=== PATIENT | female | born 1945 | race African-American/Black ===

== ENCOUNTER 2019-05-30 14:47 | Observation (INO) | payer BC ==
[~2019-05-30 14:47] MED LIST: ISOVUE-370 76%-LOCM 1 ML ONE
[2019-05-30 15:25] LABS: #Basophils 0.1 thou/uL (0.0-0.2); #Eosinphils 0.1 thou/uL (0.0-0.7); #Lymphocytes 3.4 thou/uL (1.20-3.40); #Monocytes 1.2 thou/uL (0.11-0.59); %Basophils 1.3 % (0.0-1.0); %Eosinophils 0.6 % (0.0-10.0); %Lymphocytes 28.9 % (21.0-51.0); %Monocytes 10.4 % (0.0-10.0); %Neutrophils 58.9 % (42.0-75.0); Hemoglobin 13.5 g/dL (12.0-16.0); Mean Corpuscular HGB CONC 33.5 g/dL (32.0-36.0); Mean Corpuscular Volume 95.5 fL (78.0-98.0); Mean Platelet Volume 6.3 fL (7.4-10.4); Platelet Count 311 thou/uL (130-400); RBC Distribution Width 12.4 % (11.5-14.5); Red Blood Cell (RBC) Count 4.23 mill/uL (4.20-5.40); White Blood Cell (WBC) Count 11.8 thou/uL (4.8-10.8)
--- NOTE | 2019-05-30 15:31 | RAD ---
EXAM: Single view of the chest HISTORY: Syncope COMPARISON: 06/01/2015 FINDINGS: Single view of the chest shows a normal sized cardiomediastinal silhouette. There is a ques tionable 2.4 cm nodular opacity projecting over the right upper lobe. No pleural effusion is seen. The bones are unremarkable. IMPRESSION: Questionable right upper lobe mass. A CT the chest with contrast is recommended for louie r evaluation.
[2019-05-30 15:46] LABS: ALT (SGPT) 12 U/L (8-55); AST (SGOT) 18 U/L (5-34); Alkaline Phosphatase 86 U/L (40-150); Anion Gap 11 mmol/L (10-20); BUN (Urea Nitrogen) 11 mg/dL (9.8-20.1); Bilirubin, Total 0.4 mg/dL (0.2-1.2); CK (CPK) 110 U/L (29-168); Calc. Creatinine Clearance 0 mL/min (70-130); Calcium 9.8 mg/dL (7.8-10.44); Carbon Dioxide 26 mmol/L (23-31); Chloride 104 mmol/L (98-107); Estimated GFR-MDRD 69; Glucose 86 mg/dL (83-110); Potassium 3.8 mmol/L (3.5-5.1); Sodium 137 mmol/L (136-145)
[2019-05-30] MEDS ORDERED: Aspirin Chewable 81 MG TAB ONE (17:02)
[2019-05-30] MEDS ORDERED: Acetaminophen 325 MG TAB PO PRN (17:46)
[2019-05-30] MEDS ORDERED: Nitroglycerin 0.4 MG TAB (25 Tab Bottle) PO PRN (17:46)
[2019-05-30] MEDS ORDERED: Bisacodyl 5 MG TAB PO PRN (17:46)
[2019-05-30] MEDS ORDERED: Acetaminophen 650 MG Suppository PR PRN (17:46)
[2019-05-30] MEDS ORDERED: Dextrose 50% Abboject 50 ML SYRINGE SLOW IVP PRN (17:48)
[2019-05-30] MEDS ORDERED: Dextrose 5% in Water 1,000 ML IV PRN (17:48)
[2019-05-30] MEDS ORDERED: HumaLOG 300 UNITS/3 ML VIAL SC PRN (17:48)
[2019-05-30] MEDS ORDERED: Nicotine 21 MG PATCH TD SCH (18:00)
--- NOTE | 2019-05-30 18:44 | HP ---
PRIMARY CARE PROVIDER: Dr. Rigo Hdz. CHIEF COMPLAINT: Syncope. HISTORY OF PRESENT ILLNESS: Ms. Dominguez is a pleasant 73-year-old lady, who was seen at [facility] on May 30, 2019. Around 2 p.m. today, she was playing bingo. She reports feeling cramping sensation in her right upper arm. She then passed out and fell on the ground. She was told by bystanders that she hit her head on the ground. It is unclear how long she had lost consciousness. She regained consciousness to find people asking her questions. She then vomited. EMS arrived after that and brought her to the emergency room. While in the ambulance, she had left upper extremity pain. She is unable to characterize the discomfort further, but reports that "the pain was just there." The pain resolved before she arrived at the emergency room. She denies any previous syncopal episodes. She denies any chest pain. She denies any diarrhea. She denies any abdominal pain. REVIEW OF SYSTEMS: All systems were reviewed and found to be negative except for the pertinent positives mentioned above. PAST MEDICAL HISTORY: Coronary artery disease, her pillar worker is Dr. Dominguez; hypertension; and cerebrovascular accident with residual left-sided weakness. SURGICAL HISTORY: Colectomy and polyp removal. SOCIAL HISTORY: The patient smokes one to one and half packs of cigarettes a day. She reports occasional marijuana use. She denies alcohol use. FAMILY HISTORY: Significant for multiple family members with coronary artery disease. CODE STATUS: I discussed her code status. She is full code. ALLERGIES: NO KNOWN DRUG ALLERGIES. CURRENT MEDICATIONS: 1. Aspirin 325 mg daily. 2. Lipitor 40 mg daily. 3. Plavix 75 mg daily. 4. Losartan 25 mg daily. PHYSICAL EXAMINATION: GENERAL: Ms. Dominguez is awake and alert, not in acute distress. VITAL SIGNS: Blood pressure is 137/64, pulse 82, respiratory rate 19, and oxygen saturation 98% on room air. She is afebrile. EYES: No scleral icterus, no conjunctival pallor. ENT: Moist mucosal membranes. No oropharyngeal erythema or exudates. NECK: Supple, nontender, trachea is midline. RESPIRATORY: Accessory muscles of breathing are not active. Chest wall movements are symmetric bilaterally. Lungs are clear to auscultation without wheeze, rhonchi, or crepitations. CARDIOVASCULAR: S1 and S2 are heard, regular. Peripheral pulses palpable. No carotid bruit. No pericardial rub. ABDOMEN: Soft, nontender, bowel sounds are heard. NEUROLOGIC: Cranial nerves 2 through 12 are intact. Power is 5/5 in the right upper and lower extremities, 4+/5 in the left upper and lower extremities. Deep tendon reflexes 2+, plantars downgoing bilaterally. MUSCULOSKELETAL: Power in the 4 extremities as described above. SKIN: No rashes or subcutaneous nodules. LYMPHATIC: No cervical lymphadenopathy. PSYCHIATRIC: Normal mood, normal affect. The patient is oriented to person, place, and time. LABORATORY DATA: Ms. Dominguez is labs and investigations were reviewed. I reviewed her electrocardiogram, which shows normal sinus rhythm, no ST changes to suggest an acute coronary syndrome. I also reviewed her chest x-ray, which appears to show a right upper lobe mass. She has leukocytosis with 11,800 white cells, of which 58.9% are neutrophils. Hemoglobin and platelet count are normal. Comprehensive metabolic profile is normal. Troponin-I is normal. ASSESSMENT AND PLAN: Ms. Dominguez is a pleasant 73-year-old lady, who was seen at [facility] on May 30, 2019. Her problem list includes: 1. Syncope: Ms. Dominguez is presenting with syncope, etiology is unclear. She has known history of coronary artery disease. We will check 2D echocardiogram to evaluate her ejection fraction. We will monitor her on telemetry to rule out arrhythmias. We will also consult Cardiology Service for opinion and help with management. 2. Lung mass: The patient appears to have a new lung mass on chest x-ray. We will evaluate with a CT scan of the chest. Further management depending on outcome of the test. 3. Tobacco abuse: The patient has been counseled regarding tobacco cessation. We will start her on nicotine replacement therapy. 4. Dyslipidemia: Continue Lipitor. 5. Coronary artery disease: The patient denies any chest pain at this time. Continue aspirin and Plavix. 6. Hypertension: Continue losartan, monitor vital signs and titrate antihypertensives as needed. Many thanks for allowing me to participate in your patient's care. Please feel free to contact me with any questions or concerns. LEVEL OF RISK: High. LEVEL OF COMPLEXITY: High. Job ID: [id number]
[2019-05-30 18:52] LABS: Troponin I Less than 0.010 ng/mL (< 0.028)
--- NOTE | 2019-05-30 19:26 | CT ---
NONCONTRAST HEAD CT: History: Syncope. Comparison: None. FINDINGS: No parenchymal hemorrhage. No extraaxial hematoma. No midline shift. Basilar cisterns are patent. Brain volume is age appropriate. Cortical dennis-white matter differentiation is preserved. No hydrocephalus. White matter hypodensities due to chronic small vessel ischemic change. Intact calvarium. Adequate aeration of the sinuses and mastoid air cells. IMPRESSION: No acute intracranial process. POS: H
--- NOTE | 2019-05-30 19:31 | CT ---
CHEST CT WITH CONTRAST: History: Evaluate upper lobe mass. FINDINGS: No mediastinal mass, lymphadenopathy or hematoma. Heart size is within normal limits. No significant pericardial fluid. Minimal coronary artery calcifications. The thoracic aorta and upper abdominal aor ta have a normal caliber. No periaortic fat stranding. Upper abdomen: Multiple hypodensities in the hepatic parenchyma, too small to characterize. Hypodensi ties are similar to a CT angiogram of the chest performed 06-01-15. Filling hemangioma in the right he patic lobe is redemonstrated. Heterogeneous right thyroid nodules, incompletely evaluated. Tracheal and central bronchi are patent. Dependent atelectatic changes. No pleural effusion. No pneum othorax. Right lung: Irregular marginated predominately central necrotic mass in the right upper lobe measurin g 2.1 cm mediolateral x 1.9 cm anterior posterior x 2.2 craniocaudal. Adjacent posterior atelectasis in the lung apex is suspected. Mild emphysematous changes are noted in the right lung apex. There is a second ill-defined nodule in the posterior aspect of the right upper lobe with irregular margin arelis suring 0.9 cm mediolateral x 0.9 cm anterior posterior x 0.9 cm craniocaudal. There is a ground glass nodule in the right lower lobe measuring 0.3 x 0.4 cm. Left lung: No suspicious masses, consolidations, or nodules. Osseous structures: No lytic or blastic lesions in the osseous structures. IMPRESSION: 1. Multiple masses in the right lung as described above. The largest mass is worrisome for malignancy until proven otherwise. PET imaging is recommended. Due to the central location of this mass, CT yonatan ded biopsy may be difficult. POS: [facility]
[2019-05-30] MEDS ORDERED: Atorvastatin Calcium 40 MG TAB PO SCH (21:00)
[2019-05-30 21:54] LABS: Troponin I Less than 0.010 ng/mL (< 0.028)
[2019-05-31 05:36] LABS: #Basophils 0.1 thou/uL (0.0-0.2); #Eosinphils 0.2 thou/uL (0.0-0.7); #Lymphocytes 2.9 thou/uL (1.20-3.40); #Neutrophils 5.2 thou/uL (1.40-6.50); %Basophils 0.7 % (0.0-1.0); %Eosinophils 2.5 % (0.0-10.0); %Lymphocytes 30.8 % (21.0-51.0); %Monocytes 10.6 % (0.0-10.0); %Neutrophils 55.5 % (42.0-75.0); Hemoglobin 13.1 g/dL (12.0-16.0); Mean Corpuscular HGB CONC 33.2 g/dL (32.0-36.0); Mean Corpuscular Hemoglobin 31.6 pg (27.0-31.0); Mean Corpuscular Volume 95.5 fL (78.0-98.0); Mean Platelet Volume 6.4 fL (7.4-10.4); Platelet Count 297 thou/uL (130-400); RBC Distribution Width 12.4 % (11.5-14.5); Red Blood Cell (RBC) Count 4.14 mill/uL (4.20-5.40); White Blood Cell (WBC) Count 9.4 thou/uL (4.8-10.8)
[2019-05-31 06:22] LABS: Anion Gap 12 mmol/L (10-20); BUN (Urea Nitrogen) 13 mg/dL (9.8-20.1); Calc. Creatinine Clearance 62 mL/min (70-130); Calcium 9.3 mg/dL (7.8-10.44); Carbon Dioxide 22 mmol/L (23-31); Chloride 108 mmol/L (98-107); Estimated GFR-MDRD Greater than 90; Glucose 120 mg/dL (83-110); Potassium 4.2 mmol/L (3.5-5.1); Sodium 138 mmol/L (136-145)
[2019-05-31] MEDS ORDERED: Clopidogrel Bisulfate 75 MG TAB PO SCH (09:00)
[2019-05-31] MEDS ORDERED: Losartan 25 MG TAB PO SCH (09:00)
[2019-05-31] MEDS ORDERED: Atenolol 25 MG TAB PO SCH (09:00)
[2019-05-31] MEDS ORDERED: Amlodipine 5 MG TAB PO SCH (09:00)
[2019-05-31] MEDS ORDERED: Aspirin 81 mg Enteric Coated Tablet PO SCH (09:00)
[2019-05-31 11:47] VITALS: BP 119/56; TEMP 98.4
--- NOTE | 2019-05-31 13:33 | PDOC.HOSPP ---
- Subjective Encounter Date: 05/31/19 Encounter Time: 07:00 Subjective: Pt seen for followup re: syncope. No recurrence. No complaints. - Objective Vital Signs & Weight: Vital Signs (12 hours) Temp Pulse Resp BP BP BP Pulse Ox 05/31/19 11:41 98.4 F 75 16 119/56 L 96 05/31/19 09:14 73 05/31/19 07:47 98.7 F 73 16 143/61 H 97 05/31/19 04:05 98.4 F 78 18 121/59 L 98 Weight Weight 131 lb 4.8 oz Result Diagrams: 05/31/19 05:25 05/31/19 05:25 Additional Labs: Labs and MARs reviewed by me EKG Reviewed by me: Yes (Tele: NSR) Hospitalist ROS - Review of Systems Cardiovascular: denies: chest pain, palpitations, orthopnea, paroxysmal noc. dyspnea, edema, light headedness Gastrointestinal: denies: nausea, vomiting, abdominal pain, diarrhea, constipation, melena, hematochezia - Medication Medications: Active Medications Generic Name Dose Route Start Last Admin Trade Name Freq PRN Reason Stop Dose Admin Amlodipine Besylate 5 mg 05/31/19 09:00 05/31/19 09:14 Norvasc PO 5 mg DAILY ELA Administration Aspirin 81 mg 05/31/19 09:00 05/31/19 08:15 Ecotrin PO 81 mg DAILY ELA Administration Atenolol 25 mg 05/31/19 09:00 05/31/19 09:14 Tenormin PO 25 mg DAILY ELA Administration Atorvastatin Calcium 40 mg 05/30/19 21:00 05/30/19 21:13 Lipitor PO 40 mg HS ELA Administration Clopidogrel Bisulfate 75 mg 05/31/19 09:00 05/31/19 08:15 Plavix PO 75 mg DAILY ELA Administration Losartan Potassium 25 mg 05/31/19 09:00 05/31/19 08:14 Cozaar PO 25 mg DAILY ELA Administration Nicotine 21 mg 05/30/19 18:00 05/30/19 18:47 Nicoderm Patch TD Not Given Q24HR ELA - Exam General Appearance: NAD Eye: anicteric sclera ENT: moist mucosa Neck: supple, no JVD Heart: RRR, no rubs Respiratory: CTAB, no wheezes Gastrointestinal: soft, non-tender Musculoskeletal: normal strength Psychiatric: normal affect, normal behavior Hosp A/P (1) Syncope Code(s): R55 - SYNCOPE AND COLLAPSE Status: Acute (2) Lung mass Code(s): R91.8 - OTHER NONSPECIFIC ABNORMAL FINDING OF LUNG FIELD Status: Acute (3) Marijuana use Code(s): F12.90 - CANNABIS USE, UNSPECIFIED, UNCOMPLICATED Status: Chronic (4) CAD (coronary artery disease) Code(s): I25.10 - ATHSCL HEART DISEASE OF CADDO CORONARY ARTERY W/O ANG PCTRS Status: Chronic (5) HTN (hypertension) Code(s): I10 - ESSENTIAL (PRIMARY) HYPERTENSION Status: Chronic - Plan 2D echo and cardiology consult pending. Pt has outpt appointment with , will followup re: lung mass. HTN controlled. Pt counseled re: marijuana and tobacco cessation, continue nicotine patch.
--- NOTE | 2019-05-31 14:10 | CON ---
DATE OF CONSULTATION: REASON FOR CONSULTATION: Syncope. HISTORY OF PRESENT ILLNESS: Ms. Dominguez is a 73-year-old woman, who was seen and evaluated close to 5 years ago. She has a history of CAD, status post stent placement to the LAD in 2005. She recently presented with syncope. This occurred while playing Bingo. She had right arm numbness. She then developed diaphoresis and syncope. No chest pain or pressure noted. No other ameliorating, exacerbating, or precipitating factors present. This is different than her previous cardiac pain. Her CKs and troponins have been negative. Her EKG is within normal limits. Her recent echo showed normal LVEF. No wall motion abnormalities present. The patient has also been recently diagnosed with lung mass, etiology unknown. PAST MEDICAL HISTORY: CAD status post stent placement, previous CVA, hypertension. SOCIAL HISTORY: Continues to smoke. FAMILY HISTORY: Positive for CAD. REVIEW OF SYSTEMS: A 10-point review of systems is reviewed as above, otherwise negative. ALLERGIES: NONE. HOME MEDICATIONS: Include; 1. Lipitor. 2. Aspirin. 3. Plavix. 4. Losartan. PHYSICAL EXAMINATION: GENERAL: Patient is a pleasant female, who is in no acute distress. The patient appears their stated age. VITAL SIGNS: Blood pressure 119/56, pulse 95, temperature 98.4. NEUROLOGIC: The patient is alert and oriented x3 with no focal neurologic deficits. HEENT: Sclerae without icterus. Mouth has moist mucous membranes with normal pallor. NECK: No JVD. Carotid upstroke brisk. No bruits bilaterally. LUNGS: Clear to auscultation with unlabored respirations. BACK: No scoliosis or kyphosis. CARDIAC: Regular rate and rhythm with normal S1 and S2. No S3 or S4 noted. No significant rubs, murmurs, thrills, or gallops noted throughout the precordium. PMI is not displaced. There is no parasternal heave. ABDOMEN: Soft, nontender, nondistended. No peritoneal signs present. No hepatosplenomegaly. No abnormal striae. EXTREMITIES: 2+ femoral and 2+ dorsalis pedis pulses. No cyanosis, clubbing, or edema. SKIN: No gross abnormalities. LABORATORY DATA: CK and troponin negative. Creatinine 0.75. Hemoglobin 13.1. IMPRESSION: 1. Syncope. 2. Lung mass. 3. Coronary artery disease. 4. Tobacco abuse. RECOMMENDATIONS: Ms. Dominguez's symptoms are felt to be atypical for angina. Her troponin is negative. Her EKG appears within normal limits. Given normal LVEF with no current symptoms, it would be okay for further outpatient workup. We would recommend a 3-week event recorder to assess for any significant dysrhythmias that may have precipitated the event. Lung mass workup likely can proceed as an outpatient. No further recommendations. Job ID: [id number]
[2019-05-31 14:41] VITALS: BMI 24.0
--- NOTE | 2019-06-01 01:29 | DIS ---
DATE OF ADMISSION: 05/30/2019 DATE OF DISCHARGE: 05/31/2019 PRIMARY CARE PROVIDER: Rigo Hdz MD DISCHARGE DIAGNOSES: 1. Syncope. 2. Multiple masses in the right lung. CONDITION OF PATIENT ON THE DAY OF DISCHARGE: Stable. I assessed Ms. Dominguez on the day of discharge. Please refer to my daily hospitalist progress note for details about this [id number] encounter. FOLLOWUP APPOINTMENTS: The patient is advised to follow up with Dr. Dominguez and with Dr. Kwan in 10 days. She is also advised to follow up with primary care provider in 3 days time. CONSULTATIONS DURING THIS HOSPITALIZATION: Cardiology, Dr. Dominguez. DISCHARGE MEDICATIONS: No change was made to her pre-admission home medications as dictated on my history and physical note dated May 30, 2019. HOSPITAL COURSE: Ms. Dominguez is a pleasant 73-year-old lady, who was admitted to [facility] on May 30, 2019, on observation status following a syncopal episode. Chest x-ray suggested a right upper lobe lung mass. CT scan of the chest with contrast showed multiple masses in the right lung, largest mass worrisome for malignancy until proven otherwise. The patient was also seen by Cardiology Service. She has been cleared for discharge. She was recommended three week event recorder to assess for any significant dysrhythmias that may have precipitated the syncopal episode. The patient already has an appointment with Pulmonology Service and she will follow up with them for the lung mass. On the day of discharge, she has normal white count, normal hemoglobin, normal platelet count, normal sodium, normal potassium and normal creatinine. Many thanks for allowing me to participate in your patient's care. Please feel free to contact me with any questions or concerns. DISCHARGE DESTINATION: Home. Job ID: [id number]
== END 2019-05-31 15:38 | disposition home or self-care (01) ==
LOC: ERS 14:47 → 2SW 17:56
PROVIDERS: ADMIT Family Medicine; ATTEND Family Medicine
DX: R55 Syncope and collapse (principal); R91.8 Other nonspecific abnormal finding of lung field; I25.10 Atherosclerotic heart disease of native coronary artery without angina pectoris; F17.210 Nicotine dependence, cigarettes, uncomplicated; I69.354 Hemiplegia and hemiparesis following cerebral infarction affecting left non-dominant side; E78.5 Hyperlipidemia, unspecified; I10 Essential (primary) hypertension; Z79.02 Long term (current) use of antithrombotics/antiplatelets; Z79.82 Long term (current) use of aspirin; Z79.899 Other long term (current) drug therapy
CPT/HCPCS: 36415; 70450; 71045; 71260; 80048; 80053; 82550; 84484; 85025; 93005; 93306; 94760; G0378; Q9966

== ENCOUNTER 2019-07-15 10:08 | Outpatient (CLI) | payer BC ==
--- NOTE | 2019-07-15 11:39 | PET ---
EXAM: PET CT skull to mid thigh COMPARISON: 09/20/2011; CT chest 05/30/2019, 01/22/2012 HISTORY: Solitary pulmonary nodule TECHNIQUE: A PET/CT was performed from the skull to the mid thigh after administration of 11.6 millic uries of F-18 FDG. Evaluation was performed on a [employer] workstation. FINDINGS: NECK: No areas of hypermetabolic activity CHEST: There is a 2.6 cm spiculated mass in the right upper lobe. This has a max SUV value of 14.8. N o enlarged or hypermetabolic hilar or mediastinal lymph nodes are seen. ABDOMEN/PELVIS: No areas of hypermetabolic activity SKELETON: No areas of hypermetabolic activity CT images used for attenuation correction show atherosclerotic calcifications in the aorta. The patie nt has a right breast implant. IMPRESSION: Spiculated right upper lobe mass is suspicious for malignancy. There is no evidence of me tastatic disease at this time.
== END 2019-07-15 10:09 | disposition home or self-care (01) ==
LOC: PET 10:08 → CP 10:09
PROVIDERS: ATTEND Internal Medicine Critical Care Medicine
DX: R91.1 Solitary pulmonary nodule (principal); J44.9 Chronic obstructive pulmonary disease, unspecified; R91.8 Other nonspecific abnormal finding of lung field
CPT/HCPCS: 78815; 94060; 94727; 94729; A9552

== ENCOUNTER 2019-08-12 09:29 | Outpatient (CLI) | payer BC ==
[2019-08-12 15:10] LABS: Hemoglobin 10.4 g/dL (12.0-16.0); Mean Corpuscular Hemoglobin 29.6 pg (27.0-31.0); Mean Corpuscular Volume 92.5 fL (78.0-98.0); Mean Platelet Volume 6.8 fL (7.4-10.4); Platelet Count 307 thou/uL (130-400); RBC Distribution Width 12.5 % (11.5-14.5); Red Blood Cell (RBC) Count 3.52 mill/uL (4.20-5.40); White Blood Cell (WBC) Count 10.1 thou/uL (4.8-10.8)
[2019-08-12 15:28] LABS: Anion Gap 10 mmol/L (10-20); BUN (Urea Nitrogen) 10 mg/dL (9.8-20.1); Calc. Creatinine Clearance 0 mL/min (70-130); Calcium 8.8 mg/dL (7.8-10.44); Carbon Dioxide 25 mmol/L (23-31); Chloride 112 mmol/L (98-107); Estimated GFR-MDRD 72; Glucose 93 mg/dL (83-110); Potassium 4.2 mmol/L (3.5-5.1); Sodium 143 mmol/L (136-145)
== END 2019-08-12 09:30 | disposition home or self-care (01) ==
LOC: LABBT 09:29
PROVIDERS: ATTEND Thoracic Surgery (Cardiothoracic Vascular Surgery)
DX: Z01.818 Encounter for other preprocedural examination (principal); R91.8 Other nonspecific abnormal finding of lung field
CPT/HCPCS: 80048; 85027; 86850; 86900; 86901

== ENCOUNTER 2019-08-12 14:00 | Inpatient (IN) | payer BC, MEDICARE ==
[2019-08-12 15:10] LABS: Hemoglobin 10.4 g/dL (12.0-16.0); Mean Corpuscular Hemoglobin 29.6 pg (27.0-31.0); Mean Corpuscular Volume 92.5 fL (78.0-98.0); Mean Platelet Volume 6.8 fL (7.4-10.4); Platelet Count 307 thou/uL (130-400); RBC Distribution Width 12.5 % (11.5-14.5); Red Blood Cell (RBC) Count 3.52 mill/uL (4.20-5.40); White Blood Cell (WBC) Count 10.1 thou/uL (4.8-10.8)
[2019-08-12 15:28] LABS: Anion Gap 10 mmol/L (10-20); BUN (Urea Nitrogen) 10 mg/dL (9.8-20.1); Calc. Creatinine Clearance 0 mL/min (70-130); Calcium 8.8 mg/dL (7.8-10.44); Carbon Dioxide 25 mmol/L (23-31); Chloride 112 mmol/L (98-107); Estimated GFR-MDRD 72; Glucose 93 mg/dL (83-110); Potassium 4.2 mmol/L (3.5-5.1); Sodium 143 mmol/L (136-145)
[2019-08-15] MEDS ORDERED: ePHEDrine/0.9% NaCl/PF SYRINGE 50 mg/10 ml ONE (10:03)
[2019-08-15] MEDS ORDERED: Ondansetron PF 4 MG/2 ML Vial ONE (10:03)
[2019-08-15] MEDS ORDERED: Labetalol HCl 100 MG/20 ML VIAL ONE (10:03)
[2019-08-15] MEDS ORDERED: Lidocaine 1% PF 5 ML VIAL ONE (10:03)
[2019-08-15] MEDS ORDERED: PROPOFOL 200 MG/20 ML VIAL ONE (10:03)
[2019-08-15] MEDS ORDERED: Glycopyrrolate 0.2 MG/ML 5 ML SYRINGE ONE (10:03)
[2019-08-15] MEDS ORDERED: Vecuronium 10 MG VIAL ONE (10:03)
[2019-08-15] MEDS ORDERED: Fentanyl 100 MCG/2 ML VIAL ONE ×2 (10:51→14:11)
[2019-08-15] MEDS ORDERED: Midazolam HCl 2 mg/2 ml Vial ONE (10:51)
[2019-08-15] MEDS ORDERED: Promethazine HCl 25 MG/ML VIAL IM PRN ×2 (11:30→14:19)
[2019-08-15] MEDS ORDERED: Naloxone HCl 0.4 mg/ml Vial IV PRN (11:30)
[2019-08-15] MEDS ORDERED: diphenhydrAMINE 50 MG/ML VIAL IM PRN (11:30)
[2019-08-15] MEDS ORDERED: Naloxone HCl 0.4 mg/ml Vial IVP PRN (11:30)
[2019-08-15] MEDS ORDERED: diphenhydrAMINE 50 MG/ML VIAL IVP PRN (11:30)
[2019-08-15] MEDS ORDERED: Hydrocerin (Eucerin) Cream 120 gm Jar TOP PRN (11:30)
[2019-08-15] MEDS ORDERED: traMADol HCl 50 MG TAB PO PRN ×2 (11:30)
[2019-08-15] MEDS ORDERED: Zolpidem Tartrate 5 MG TAB PO PRN (11:30)
[2019-08-15] MEDS ORDERED: Ondansetron PF 4 MG/2 ML Vial IVP PRN ×2 (11:30→13:47)
[2019-08-15] MEDS ORDERED: Promethazine HCl 25 MG SUPP PR PRN (11:30)
[2019-08-15] MEDS ORDERED: Bupivacaine PF 0.5% 30 ML VIAL ONE (11:52)
[2019-08-15] MEDS ORDERED: Fentanyl 250 MCG/5 ML VIAL ONE (11:52)
[2019-08-15] MEDS: Ketorolac Tromethamine 30 MG/ML VIAL IVP SCH ×3 (12:00→23:47)
[2019-08-15] MEDS: CEFAZOLIN 2 GM in Premix Bag 1 BAG IVPB SCH ×2 (12:05→21:16)
[2019-08-15] MEDS ORDERED: Phenylephrine HCL 10 MG/ML VIAL ONE (12:48)
[2019-08-15] MEDS ORDERED: HYDROcodone/Acetaminophen 5/325 mg Tablet PO PRN ×2 (13:47)
[2019-08-15] MEDS ORDERED: Norepinephrine 8 MG/0.9% NS 250 ML IVPB PRN (13:47)
[2019-08-15] MEDS ORDERED: Promethazine HCl 25 MG/ML VIAL SLOW IVP PRN ×2 (13:47→14:19)
[2019-08-15] MEDS ORDERED: Nitroglycerin 50 MG/250 ML BOT 250 ML IVPB PRN (13:47)
[2019-08-15] MEDS ORDERED: Fentanyl 100 MCG/2 ML VIAL SLOW IVP SCH (14:00)
[2019-08-15] MEDS ORDERED: Bupivacaine 0.25% 10 ML VIAL EPIDURAL SCH (14:00)
[2019-08-15] MEDS ORDERED: Sodium Chloride 0.9% 10 ML ONE (14:12)
[2019-08-15] MEDS ORDERED: Bupivacaine 0.5% 10 ML VIAL ONE (14:12)
[2019-08-15] MEDS ORDERED: Ondansetron HCl/PF 4 MG/2 ML Vial IVP PRN (14:19)
--- NOTE | 2019-08-15 14:25 | RAD ---
XR Chest 1 View Portable History: Thoracotomy Comparison: CT chest May 30, 2019 Findings: Large right pneumothorax with indwelling thoracostomy tube in good position. Right upper lo bectomy changes. Left lung is clear. Gaseous distention of the stomach. Impression: Large right pneumothorax as expected postthoracotomy with indwelling thoracostomy tube in good position.
[2019-08-15] MEDS ORDERED: Ketorolac Tromethamine 30 MG/ML VIAL ONE (15:00)
[2019-08-15] MEDS ORDERED: Fentanyl 5 mcg/Bup 0.075% Cadd 100 ML EPIDURAL SCH (15:30)
--- NOTE | 2019-08-15 16:19 | RAD ---
Chest AP view INDICATION: Chest tube COMPARISON: August 15, 2019 at 1:56 PM FINDINGS: Lungs:Residual opacity remains within the right midlung. There is improved aeration of the right midl irene Cardiac silhouette:Mild cardiomegaly is stable Pulmonary vasculature:Normal Pleural spaces:Right-sided pneumothorax has decreased in size. Small right apical pneumothorax remain s. Right-sided thoracostomy tube is unchanged in position. Upper abdomen:No abnormality seen. Osseous structures: No acute osseous abnormality. Additional findings:None. IMPRESSION: 1. Reduction in size of the large right-sided pneumothorax. Small residual right apical pneumothorax remains. Right-sided thoracostomy tube is unchanged in position. 2. Improved aeration of the right midlung with some residual opacities present within the right midlu ng which may reflect some mild edema. Continued follow-up is recommended. 3. Stable cardiomegaly
[2019-08-15 20:45] VITALS: BMI 25.7
[2019-08-15] MEDS: diphenhydrAMINE 25 MG CAP PO PRN (23:48)
[2019-08-16] MEDS: HYDROcodone/Acetaminophen 5/325 mg Tablet PO PRN ×3 (02:20→16:00)
[2019-08-16] MEDS: Fentanyl 5 mcg/Bup 0.075% Cadd 100 ML EPIDURAL SCH ×3 (02:34→23:21)
[2019-08-16 04:23] LABS: #Lymphocytes 2.6 thou/uL (1.20-3.40); #Monocytes 1.4 thou/uL (0.11-0.59); #Neutrophils 11.5 thou/uL (1.40-6.50); %Basophils 0.3 % (0.0-1.0); %Eosinophils 0.3 % (0.0-10.0); %Lymphocytes 16.8 % (21.0-51.0); %Monocytes 8.7 % (0.0-10.0); %Neutrophils 73.9 % (42.0-75.0); Hemoglobin 9.4 g/dL (12.0-16.0); Mean Corpuscular HGB CONC 32.5 g/dL (32.0-36.0); Mean Corpuscular Hemoglobin 29.9 pg (27.0-31.0); Mean Corpuscular Volume 91.9 fL (78.0-98.0); Mean Platelet Volume 7.4 fL (7.4-10.4); Platelet Count 244 thou/uL (130-400); RBC Distribution Width 12.6 % (11.5-14.5); Red Blood Cell (RBC) Count 3.14 mill/uL (4.20-5.40); White Blood Cell (WBC) Count 15.5 thou/uL (4.8-10.8)
[2019-08-16 04:45] LABS: Anion Gap 12 mmol/L (10-20); BUN (Urea Nitrogen) 17 mg/dL (9.8-20.1); Calc. Creatinine Clearance 44 mL/min (70-130); Carbon Dioxide 21 mmol/L (23-31); Chloride 108 mmol/L (98-107); Estimated GFR-MDRD 56; Glucose 93 mg/dL (83-110); Potassium 4.2 mmol/L (3.5-5.1); Sodium 137 mmol/L (136-145)
[2019-08-16] MEDS: Ketorolac Tromethamine 30 MG/ML VIAL IVP SCH ×4 (05:06→23:54)
[2019-08-16] MEDS: CEFAZOLIN 2 GM in Premix Bag 1 BAG IVPB SCH (05:07)
[2019-08-16] MEDS ORDERED: Sodium Chloride 0.9% 1,000 ML IV SCH (06:15)
--- NOTE | 2019-08-16 08:49 | OP ---
DATE OF PROCEDURE: 08/15/2019 PREOPERATIVE DIAGNOSIS: Right upper lobe mass. POSTOPERATIVE DIAGNOSIS: Right upper lobe mass. PROCEDURE PERFORMED: Right upper lobectomy. ANESTHESIA: General. ESTIMATED BLOOD LOSS: Less than 100. DESCRIPTION OF PROCEDURE: After adequate anesthesia had been obtained with double-lumen endotracheal tube and bronchoscopy confirmed good positioning. After placement in the left lateral decubitus position. A posterolateral muscle sparing thoracotomy was carried out. Chest was entered. Inferior pulmonary ligament mobilized with the Bovie sports administrator. The fissure between upper and middle lobe was taken down with the Bovie and the fissure between the upper and lower lobe was completed with a single staple firing. The pulmonary artery branches were then handled with the vascular loads and then the same with the pulmonary vein branches to the upper lobe. The bronchus was handled with a green staple load testing to 30 cm of water. Following this, the mediastinum was examined and there was no adenopathy. Two chest tubes were then placed following which the ribs were reapproximated with catgut pericostal sutures. Muscle layers were reapproximated in their anatomic position and the subcutaneous tissue and skin closed in layers. Job ID: [id number]
--- NOTE | 2019-08-16 08:58 | RAD ---
PORTABLE CHEST ONE VIEW: 08/16/2019 4:21 a.m. HISTORY: Status post thoracotomy. COMPARISON: Exam from the previous day. FINDINGS: Right sided chest tube remains in place with continued mild opacity in the right lung. No pneumothora angelo is seen. The heart size is normal. The left lung is clear. POS: [facility]
[2019-08-16] MEDS ORDERED: FLU VACC TS2019-20(65YR UP)/PF 180 MCG/0.5 ML SYRINGE IM ONE (09:00)
[2019-08-16] MEDS: Atenolol 25 MG TAB PO SCH (09:33)
[2019-08-16] MEDS ORDERED: Enoxaparin Sodium 30 MG/0.3 ML SYRINGE SC SCH (12:00)
[2019-08-16] MEDS: diphenhydrAMINE 25 MG CAP PO PRN (20:02)
[2019-08-17 03:59] LABS: #Basophils 0.1 thou/uL (0.0-0.2); #Eosinphils 0.2 thou/uL (0.0-0.7); #Lymphocytes 2.4 thou/uL (1.20-3.40); #Monocytes 1.7 thou/uL (0.11-0.59); #Neutrophils 11.5 thou/uL (1.40-6.50); %Basophils 0.4 % (0.0-1.0); %Eosinophils 1.2 % (0.0-10.0); %Lymphocytes 15.1 % (21.0-51.0); %Monocytes 10.9 % (0.0-10.0); %Neutrophils 72.4 % (42.0-75.0); Hemoglobin 9.9 g/dL (12.0-16.0); Mean Corpuscular HGB CONC 32.3 g/dL (32.0-36.0); Mean Corpuscular Hemoglobin 29.7 pg (27.0-31.0); Platelet Count 239 thou/uL (130-400); RBC Distribution Width 12.6 % (11.5-14.5); Red Blood Cell (RBC) Count 3.35 mill/uL (4.20-5.40); White Blood Cell (WBC) Count 15.9 thou/uL (4.8-10.8)
[2019-08-17 04:21] LABS: Anion Gap 11 mmol/L (10-20); BUN (Urea Nitrogen) 22 mg/dL (9.8-20.1); Calc. Creatinine Clearance 42 mL/min (70-130); Calcium 8.8 mg/dL (7.8-10.44); Carbon Dioxide 23 mmol/L (23-31); Chloride 105 mmol/L (98-107); Estimated GFR-MDRD 54; Glucose 117 mg/dL (83-110); Potassium 4.4 mmol/L (3.5-5.1); Sodium 135 mmol/L (136-145)
[2019-08-17] MEDS: Ketorolac Tromethamine 30 MG/ML VIAL IVP SCH (05:29)
--- NOTE | 2019-08-17 07:46 | RAD ---
Portable frontal chest radiograph: 08/17/2019 COMPARISON: 08/16/2019 HISTORY: Evaluate chest following thoracotomy FINDINGS: Stable right chest tube. Postoperative clip noted in the right hilar region with adjacent s uture lines. Left lung appears clear. There is hazy increased density in the right perihilar region, nonspecific. This may represent volume loss or infiltrate. Follow-up imaging advised. No disc rete pneumothorax. IMPRESSION: Postoperative changes on the right. Nonspecific increased density in the right hilar lacey on for which follow-up imaging is advised.
[2019-08-17] MEDS: Fentanyl 5 mcg/Bup 0.075% Cadd 100 ML EPIDURAL SCH ×2 (07:57→18:11)
[2019-08-17] MEDS: Atenolol 25 MG TAB PO SCH (09:06)
[2019-08-17] MEDS: Polyethylene Glycol 3350 17 GM Packet PO SCH (09:06)
--- NOTE | 2019-08-17 09:18 | CON ---
DATE OF CONSULTATION: 08/17/2019 CONSULTING PHYSICIAN: Chance Dimas MD. REASON FOR CONSULTATION: Postoperative management. HISTORY OF PRESENT ILLNESS: This is a 73-year-old female, who is a patient of Dr. Rankin. She underwent a right upper lobectomy yesterday for a right-sided lung mass. After surgery, she was put in the ICU. She has an epidural catheter in place. She is complaining of some left hand weakness. She does have a history of previous stroke. Otherwise, she is doing well. She has a chest tube in place on the right. PAST MEDICAL HISTORY: 1. Coronary artery disease. 2. Myocardial infarction. 3. Stroke. 4. Hypertension. 5. Back pain. PAST SURGICAL HISTORY: 1. Appendectomy. 2. Hysterectomy. 3. Colonoscopy. 4. Colon resection. 5. Tubal ligation. 6. Bilateral mastectomy with implants for fibrocystic breast disease. 7. Coronary stent placement. 8. Removal of left breast implant. FAMILY MEDICAL HISTORY: Remarkable for heart disease, hypertension, and cancer. SOCIAL HISTORY: The patient smokes half pack per day. ALLERGIES: NONE. REVIEW OF SYSTEMS: Twelve-point review of systems is otherwise negative. PHYSICAL EXAMINATION: VITAL SIGNS: Temperature 99.1, pulse 88, blood pressure 160/80, and O2 saturation 100%. A 24-hour intake 2628, output 1516. GENERAL: She is a healthy-appearing female, who is sitting up, eating breakfast. HEENT: Pupils react. Sclerae are anicteric. Oropharynx clear. NECK: No JVD. LUNGS: Clear bilaterally. She has a chest tube in place on the right. CARDIAC: S1 and S2. Regular. ABDOMEN: Soft and nontender to palpation. EXTREMITIES: No clubbing, cyanosis, or edema. 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 LABORATORY DATA: White blood cell count 15.9, hematocrit 30.8, and platelet count 239. Sodium 135, potassium 4.4, chloride 105, CO2 of 23, BUN 22, creatinine 1.2, and glucose 117. IMAGING DATA: Her chest x-ray shows mediastinal shift towards the right. There is chest tube placed in the right. No obvious pneumothorax. ASSESSMENT: 1. Status post lobectomy for lung mass, pathology pending, but presumed to be cancerous. 2. Tobacco abuse. 3. Previous myocardial infarction. 4. Previous stroke. 5. Left arm weakness, likely from effects of the epidural. PLAN: She is safe to transfer to the floor. We will re-evaluate her neurologic status once the epidural was turned off and out. She will receive nebulization treatments for breathing. We will follow up on pathology when it has resulted. Job ID: [id number]
[2019-08-17] MEDS: Atorvastatin Calcium 40 MG TAB PO SCH (10:15)
[2019-08-17] MEDS: HYDROcodone/Acetaminophen 5/325 mg Tablet PO PRN ×2 (15:24→22:37)
[2019-08-17] MEDS: Enoxaparin Sodium 30 MG/0.3 ML SYRINGE SC SCH (16:42)
[2019-08-18] MEDS: Polyethylene Glycol 3350 17 GM Packet PO SCH (05:50)
[2019-08-18] MEDS: HYDROcodone/Acetaminophen 5/325 mg Tablet PO PRN ×2 (05:53→20:42)
[2019-08-18] MEDS: Fentanyl 5 mcg/Bup 0.075% Cadd 100 ML EPIDURAL SCH ×2 (06:44→16:18)
--- NOTE | 2019-08-18 07:39 | RAD ---
Chest one view HISTORY: Chest tube. Follow-up. COMPARISON: 08/17/2019. FINDINGS: Cardiac silhouette is magnified by projection. Postoperative changes of the right hilum aga in demonstrated with slight rightward shift in the mediastinum. Right thoracostomy tube remains in place. No evidence of pneumothorax. Left lung well-inflated. Metallic wire overlying the left upper c hest and base of the neck is unchanged in position. IMPRESSION: Stable postoperative appearance of the chest.
[2019-08-18] MEDS: Atorvastatin Calcium 40 MG TAB PO SCH (09:00)
[2019-08-18] MEDS: Bisacodyl 5 MG TAB PO SCH (09:00)
[2019-08-18] MEDS: Atenolol 25 MG TAB PO SCH (09:00)
--- NOTE | 2019-08-18 09:17 | PRG ---
DATE OF SERVICE: 08/18/2019 SUBJECTIVE: The patient is about the same. She has no acute complaints. Her chest tube remains in place. OBJECTIVE: VITAL SIGNS: Temperature is 99.3, pulse 86, respirations 20, O2 saturations 99% on 2 L. HEENT: Unremarkable. NECK: No adenopathy or JVD. CHEST: Clear bilaterally. She has no air leak from her chest tube. CARDIAC: S1 and S2 regular. ABDOMEN: Soft. EXTREMITIES: No edema. 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 RECOMMENDATIONS: I believe that after she is discharged, she will need oncologic referral for further evaluation. She may need chemotherapy before it is all over. Job ID: [id number]
[2019-08-18] MEDS: Enoxaparin Sodium 30 MG/0.3 ML SYRINGE SC SCH (16:18)
[2019-08-18] MEDS: Bisacodyl 10 MG SUPP PR PRN (20:44)
[2019-08-19] MEDS: Fentanyl 5 mcg/Bup 0.075% Cadd 100 ML EPIDURAL SCH ×3 (01:01→19:08)
[2019-08-19] MEDS: HYDROcodone/Acetaminophen 5/325 mg Tablet PO PRN ×6 (01:15→22:11)
--- NOTE | 2019-08-19 07:56 | RAD ---
PORTABLE CHEST 1 VIEW: DATE: 08/19/2019. TIME: 6:49 a.m. HISTORY: Status post thoracotomy. FINDINGS/IMPRESSION: No significant interval change seen since the previous day's exam. POS: [facility]
[2019-08-19] MEDS: Atenolol 25 MG TAB PO SCH (08:35)
[2019-08-19] MEDS: Bisacodyl 5 MG TAB PO SCH (08:35)
[2019-08-19] MEDS: Polyethylene Glycol 3350 17 GM Packet PO SCH (08:35)
[2019-08-19] MEDS: Atorvastatin Calcium 40 MG TAB PO SCH (08:35)
[2019-08-19] MEDS: Guaifenesin DM 100-10/5 ML UDCUP PO SCH ×3 (08:36→18:10)
--- NOTE | 2019-08-19 09:43 | PRG ---
DATE OF SERVICE: 08/19/2019 SUBJECTIVE: The patient is doing well. No complaints. Chest tube now on water-seal. OBJECTIVE: VITAL SIGNS: Temperature 98.8, pulse 87, blood pressure 158/74, and O2 saturation 99%. HEENT: Unremarkable. NECK: No adenopathy or JVD. CHEST: Clear to auscultation. CARDIAC: S1 and S2, regular. ABDOMEN: Soft. EXTREMITIES: No edema. ASSESSMENT: Status post right upper lobectomy for lung cancers - she has 2 different lung cancers - see report. PLAN: Once she is out of the hospital, she will need oncologic referral. Job ID: [id number]
[2019-08-19] MEDS: Bisacodyl 10 MG SUPP PR PRN (12:35)
[2019-08-19] MEDS: Enoxaparin Sodium 30 MG/0.3 ML SYRINGE SC SCH (16:12)
[2019-08-20] MEDS: Guaifenesin DM 100-10/5 ML UDCUP PO SCH ×5 (00:26→23:44)
[2019-08-20] MEDS: HYDROcodone/Acetaminophen 5/325 mg Tablet PO PRN ×3 (02:13→21:22)
[2019-08-20] MEDS: Fentanyl 5 mcg/Bup 0.075% Cadd 100 ML EPIDURAL SCH (03:23)
--- NOTE | 2019-08-20 08:05 | RAD ---
Chest one view portable: HISTORY: Status post thoracotomy COMPARISON: 08/19/2019 FINDINGS: Right-sided chest tube is been removed. Linear parenchymal changes in the right midlung zone and righ t apex. Stable heart size and left chest. IMPRESSION: Removal of the right-sided chest tube without significant pneumothorax. Some persistent scarring in t he right lung. Continued short-term follow-up.
[2019-08-20] MEDS: Polyethylene Glycol 3350 17 GM Packet PO SCH (09:34)
[2019-08-20] MEDS: Bisacodyl 5 MG TAB PO SCH (09:35)
[2019-08-20] MEDS: Atorvastatin Calcium 40 MG TAB PO SCH (09:35)
[2019-08-20] MEDS: Atenolol 25 MG TAB PO SCH (09:35)
[2019-08-20] MEDS ORDERED: Magnesium Citrate 300 ML BOT PO SCH (12:30)
--- NOTE | 2019-08-20 12:43 | PRG ---
DATE OF SERVICE: 08/20/2019 SUBJECTIVE: Chest tube was removed this morning. Still she is constipated, is prior to receiving several different laxatives, she is concerned, she is still short of breath though. OBJECTIVE: VITAL SIGNS: Saturations 98% on room air, respirations 20, temperature 98, pulse 73, and blood pressure 140/67. CHEST: Decreased breath sounds. Minimal wheezing. CARDIAC: Normal S1, S2. No gallops. ABDOMEN: No masses. ASSESSMENT: Chronic obstructive pulmonary disease, status post right lobectomy. PLAN: Continue present neb treatments. Supportive care. She is stable. She will be discharged to home. In the meantime, I am going to give her some laxative. Job ID: [id number]
[2019-08-20] MEDS: Enoxaparin Sodium 30 MG/0.3 ML SYRINGE SC SCH (17:49)
[2019-08-20] MEDS: Bisacodyl 10 MG SUPP PR PRN (20:37)
[2019-08-21] MEDS: Guaifenesin DM 100-10/5 ML UDCUP PO SCH ×2 (05:47→12:50)
[2019-08-21] MEDS: Atenolol 25 MG TAB PO SCH (07:41)
[2019-08-21] MEDS: Atorvastatin Calcium 40 MG TAB PO SCH (07:42)
[2019-08-21] MEDS: Polyethylene Glycol 3350 17 GM Packet PO SCH (07:43)
[2019-08-21] MEDS: Bisacodyl 5 MG TAB PO SCH (07:43)
--- NOTE | 2019-08-21 12:21 | PRG ---
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 She is doing well. OBJECTIVE: VITAL SIGNS: Temperature 99, pulse 85, respirations 14, saturations on room air 93%, blood pressure 112/73. CHEST: Minimal wheezing. CARDIAC: Normal S1 and S2. No gallops. ABDOMEN: No masses. ASSESSMENT AND PLAN: 1. Chronic obstructive pulmonary disease, status post lobectomy. 2. She will be discharged home on DuoNeb, Symbicort inhaler. 3. Apparently, the nurses have checked the oxygen level multiple times and is 87% on room air, so she is probably going to require low-flow O2 at home. Medicine that we will be sending home on low-flow O2 on 2 L portable and a concentrator. 4. Follow up with Dr. Velez in several weeks. Job ID: [id number]
[2019-08-21] MEDS: HYDROcodone/Acetaminophen 5/325 mg Tablet PO PRN ×2 (12:46→16:39)
[2019-08-21 15:34] VITALS: BP 134/71; TEMP 98.9
[2019-08-21] MEDS: Enoxaparin Sodium 30 MG/0.3 ML SYRINGE SC SCH (16:35)
--- NOTE | 2019-08-22 12:13 | DIS ---
DATE OF ADMISSION: 08/15/2019 DATE OF DISCHARGE: 08/21/2019 HOSPITAL COURSE: The patient was admitted for elective right upper lobectomy, which was performed. Postoperatively, she had some oxygen requirements using nasal cannula oxygen, for room air O2 saturations in the upper 80s. She did have some episodes of wheezing on a regular basis related to her longstanding tobacco usage. Her chest tubes were removed and her chest x-ray showed gradual improvement while in the hospital. She was ambulating the halls without difficulty. She will be discharged home on her admitting medicines and the amlodipine will be initially held. She will receive a prescription for MiraLAX as well as hydrocodone. I will ask Pulmonary to arrange for outpatient oxygen therapy as well as inhaler. Discharge and followup instructions have been given. Job ID: [id number]
--- NOTE | 2019-08-24 17:41 | PQF ---
KUMAR KELLY JAMES M MD [id number] CLINICAL DOCUMENTATION CLARIFICATION FORM: POST DISCHARGE Addendum to original discharge summary date: ____ Late entry note date: __ DATE: 08/24/19 ATTN: Chance Acuna Please exercise your independent, professional judgment in responding to the clarification form. Clinical indicators are provided on the bottom of this form for your review Can you please further clarify the condition being treated and evaluated based on the clinical indicators below? Please check appropriate box(s): [ ] Post Operative pneumothorax [ ] Post Operative acute respiratory failure [ ] Acute respiratory insufficiency [ ] Other diagnosis please specify [ ] Unable to determine In addition, please specify: Present on Admission (POA): [ ] Yes [ ] No [ ] Unable to determine For continuity of documentation, please document condition throughout progress notes and discharge summary. Thank You. CLINICAL INDICATORS - SIGNS / SYMPTOMS / LABS H and P pg.1- RUL mass likely malignant and will need right upper lobectomy Chest X ray 08/15- Reduction in size of the large right sided pneumothorax. Small residual right apical pneumothorax remains Chest X ray 08/17- there is hazy increased density in the right perihilar region Chest X ray 08/20- removal of the right chest tube without significant pneumothorax PN 08/21 p.1- "apparently the nurses have checked the oxygen level multiple times and is 87% on room air" PN 08/21 p.1- "will be sending home on low-flow O2 on 2 L" DS 08/21 p.1- "she did have some episodes of wheezing" DS 08/21 p.1- "O2 saturation in the higher 80s" RISK FACTORS long standing tobacco usage-DS pg.1 COPD-PN 08/21 pg.1 Right upper lobe mass- OP report pg.1 CAD- Consult Dr. Camarillo Hypertension- Consult Dr. Camarillo TREATMENTS: Oxygen therapy- Ds pg.1 Chest X ray 08/20 Right upper lobe lobectomy- OP report pg.1 Nebulization treatment- PN 08/20 Dr. Kwan Incentive Spirometry 08/21 IV fluids- MAR (This form is maintained as a part of the permanent medical record) 2014 [employer]. All Rights Reserved [email or web address] [not provided] MTDD
== END 2019-08-21 17:34 | disposition home health service (06) | DRG 165 ==
LOC: SURG A 08-15 05:58 → CCU 08-15 15:42 → SURG B 08-17 17:54
PROVIDERS: ADMIT Thoracic Surgery (Cardiothoracic Vascular Surgery); ATTEND Thoracic Surgery (Cardiothoracic Vascular Surgery)
PROC: 0BTC0ZZ Resection of Right Upper Lung Lobe, Open Approach (ICD-10-PCS; principal; 2019-08-15)
DX: C34.10 Malignant neoplasm of upper lobe, unspecified bronchus or lung (principal); I10 Essential (primary) hypertension; I25.10 Atherosclerotic heart disease of native coronary artery without angina pectoris; M54.9 Dorsalgia, unspecified; J44.9 Chronic obstructive pulmonary disease, unspecified; E78.5 Hyperlipidemia, unspecified; I08.1 Rheumatic disorders of both mitral and tricuspid valves; F41.9 Anxiety disorder, unspecified; K59.00 Constipation, unspecified; I25.2 Old myocardial infarction; Z90.49 Acquired absence of other specified parts of digestive tract; Z98.51 Tubal ligation status; Z90.710 Acquired absence of both cervix and uterus; Z95.5 Presence of coronary angioplasty implant and graft; I69.334 Monoplegia of upper limb following cerebral infarction affecting left non-dominant side; Z87.891 Personal history of nicotine dependence
CPT/HCPCS: 36415; 71045; 80048; 85025; 85027; 86850; 86900; 86901; 88307; 88309; 88331; 88332; 88341; 88342; 94640; J0690; J1642; J1650; J1885; J2001; J2250; J2370; J2405; J2704; J3010; J3490; J7620; Q0163; S0020

== ENCOUNTER 2019-10-03 14:50 | Outpatient (CLI) | payer BC ==
--- NOTE | 2019-10-03 15:13 | RAD ---
EXAM: Chest 2 views: HISTORY: Malignant neoplasm of the upper lobe of the lung COMPARISON: 08/20/2019 FINDINGS: There is a normal-sized cardiomediastinal silhouette. There is volume loss in the right thorax likel y from prior lobectomy. There is a subtle veil-like opacity in the upper aspect of the right thorax which could represent a small amount of loculated fluid. There is no evidence of consolidation or ma ss. The bones are unremarkable. IMPRESSION: Postsurgical changes in the right chest
== END 2019-10-03 14:51 | disposition home or self-care (01) ==
LOC: RAD 14:50
PROVIDERS: ATTEND Thoracic Surgery (Cardiothoracic Vascular Surgery)
DX: C34.10 Malignant neoplasm of upper lobe, unspecified bronchus or lung (principal); Z98.890 Other specified postprocedural states
CPT/HCPCS: 71046

== ENCOUNTER 2020-01-11 13:59 | Outpatient (CLI) | payer BC ==
--- NOTE | 2020-01-11 14:34 | RAD ---
Chest 2 views HISTORY: Lung cancer. COMPARISON: 10/03/2019. FINDINGS: Cardiac silhouette and pulmonary vasculature are unremarkable. Postoperative changes at the right hilum are again demonstrated with decreased volume of the remaining right lung. Callus formation consistent with a healing fracture now involves the posterolateral aspect of the rig ht fifth rib. Left lung remains hyperinflated. Residual scarring at the right lateral costophrenic angle is stable. No evidence of pneumothorax or pleural fluid. IMPRESSION : Healing fracture at the posterolateral aspect of the right fifth rib. Otherwise stable postoperative appearance of the chest.
== END 2020-01-11 14:00 | disposition home or self-care (01) ==
LOC: RAD 13:59
PROVIDERS: ATTEND Thoracic Surgery (Cardiothoracic Vascular Surgery)
DX: C34.10 Malignant neoplasm of upper lobe, unspecified bronchus or lung (principal); S22.31XD Fracture of one rib, right side, subsequent encounter for fracture with routine healing
CPT/HCPCS: 71046

== ENCOUNTER 2020-12-18 14:04 | Outpatient (CLI) | payer BC | END 2020-12-18 14:05 | disposition home or self-care (01) | LOC: BICRAD 14:04 | PROVIDERS: ATTEND Thoracic Surgery (Cardiothoracic Vascular Surgery) | DX: C34.10 Malignant neoplasm of upper lobe, unspecified bronchus or lung (principal) | CPT/HCPCS: 71046 ==

== ENCOUNTER 2021-04-30 16:42 | Emergency (ER) | payer BC ==
[2021-04-30 17:13] LABS: #Eosinphils 0.2 thou/uL (0.0-0.7); #Lymphocytes 3.3 thou/uL (1.20-3.40); #Monocytes 1.1 thou/uL (0.11-0.59); #Neutrophils 6.1 thou/uL (1.40-6.50); %Basophils 0.2 % (0.0-1.0); %Eosinophils 1.4 % (0.0-10.0); %Lymphocytes 30.5 % (21.0-51.0); %Monocytes 10.6 % (0.0-10.0); %Neutrophils 57.2 % (42.0-75.0); Hemoglobin 7.5 g/dL (12.0-16.0); Mean Corpuscular HGB CONC 30.3 g/dL (32.0-36.0); Mean Corpuscular Hemoglobin 23.4 pg (27.0-31.0); Mean Corpuscular Volume 77.1 fL (78.0-98.0); Mean Platelet Volume 8.3 fL (7.4-10.4); Platelet Count 393 thou/uL (130-400); RBC Distribution Width 17.2 % (11.5-14.5); White Blood Cell (WBC) Count 10.7 thou/uL (4.8-10.8)
[2021-04-30 17:20] LABS: Bacteria/HPF 4+ HPF (None Seen); Bilirubin Negative (Negative); Blood, Urine 1+ (Negative); Clarity Clear (Clear); Glucose, Urine (Dipstick) Normal (Negative); Ketone, Urine Negative (Negative); Leukocyte 250 Leu/uL (Negative); Nitrite 1+ (Negative); Protein, Urine (Dipstick) Negative (Neg-Trace); Specific Gravity, Urine 1.016 (1.002-1.036); Squamous Epithelial 0-3 HPF (0-3); Urobilinogen Normal mg/dL (Less than 2); WBC/HPF 21-50 HPF (0-3); pH, Urine 6.5 (5.0-9.0)
[2021-04-30 17:40] LABS: ALT (SGPT) 15 U/L (8-55); AST (SGOT) 18 U/L (5-34); Albumin 3.7 g/dL (3.4-4.8); Alkaline Phosphatase 139 U/L (40-110); Anion Gap 13 mmol/L (10-20); BUN (Urea Nitrogen) 28 mg/dL (9.8-20.1); Bilirubin, Total 0.3 mg/dL (0.2-1.2); Calc. Creatinine Clearance 0 mL/min (70-130); Calcium 9.1 mg/dL (7.8-10.44); Carbon Dioxide 23 mmol/L (23-31); Chloride 110 mmol/L (98-107); Globulin 3.1 g/dL (2.4-3.5); Glucose 106 mg/dL (83-110); Potassium 3.1 mmol/L (3.5-5.1); Protein, Total 6.8 g/dL (5.8-8.1); Sodium 143 mmol/L (136-145)
[2021-04-30 19:21] LABS: CK (CPK) 100 U/L (29-168); Lipase 96 U/L (8-78)
[2021-04-30] MEDS ORDERED: cefTRIAXone\\ROCEPHIN 1 GM VIAL ONE (21:28)
== END 2021-04-30 21:43 | disposition home or self-care (01) ==
LOC: ERS 16:42
DX: D64.9 Anemia, unspecified (principal); N39.0 Urinary tract infection, site not specified; Z79.899 Other long term (current) drug therapy; Z79.82 Long term (current) use of aspirin; I25.10 Atherosclerotic heart disease of native coronary artery without angina pectoris; I25.2 Old myocardial infarction; I10 Essential (primary) hypertension; F17.210 Nicotine dependence, cigarettes, uncomplicated
CPT/HCPCS: 36415; 36430; 71045; 80053; 81003; 81015; 82550; 83690; 83880; 84484; 85025; 86850; 86900; 86901; 87077; 87086; 87186; 93005; 96365; J0696; P9016

== ENCOUNTER 2022-04-15 14:47 | Emergency (ER) | payer MEDICARE, BC ==
[~2022-04-15 14:47] MED LIST changes: -ISOVUE-370 76%-LOCM 1 ML ONE; +Iopamidol-370 76% 500 ML 1 ML ONE
[2022-04-15 15:15] LABS: #Eosinphils 0.3 thou/uL (0.0-0.7); #Monocytes 0.8 thou/uL (0.11-0.59); #Neutrophils 5.9 thou/uL (1.40-6.50); %Basophils 0.2 % (0.0-1.0); %Eosinophils 2.7 % (0.0-10.0); %Lymphocytes 29.7 % (21.0-51.0); %Neutrophils 59.4 % (42.0-75.0); Hemoglobin 9.3 g/dL (12.0-16.0); Mean Corpuscular HGB CONC 31.6 g/dL (32.0-36.0); Mean Corpuscular Hemoglobin 27.5 pg (27.0-31.0); Mean Corpuscular Volume 86.8 fL (78.0-98.0); Mean Platelet Volume 7.1 fL (7.4-10.4); Platelet Count 357 thou/uL (130-400); RBC Distribution Width 13.5 % (11.5-14.5); Red Blood Cell (RBC) Count 3.37 mill/uL (4.20-5.40); White Blood Cell (WBC) Count 9.9 thou/uL (4.8-10.8)
[2022-04-15 15:35] LABS: ALT (SGPT) Less than 7 U/L (8-55); AST (SGOT) 14 U/L (5-34); Albumin 3.7 g/dL (3.4-4.8); Alkaline Phosphatase 95 U/L (40-110); Anion Gap 13 mmol/L (10-20); BUN (Urea Nitrogen) 22 mg/dL (9.8-20.1); Bilirubin, Total 0.3 mg/dL (0.2-1.2); Calc. Creatinine Clearance 0 mL/min (70-130); Calcium 9.1 mg/dL (7.8-10.44); Carbon Dioxide 22 mmol/L (23-31); Chloride 109 mmol/L (98-107); Estimated GFR 83; Globulin 2.9 g/dL (2.4-3.5); Glucose 97 mg/dL (83-110); Lipase 55 U/L (8-78); Potassium 3.3 mmol/L (3.5-5.1); Protein, Total 6.6 g/dL (5.8-8.1); Sodium 141 mmol/L (136-145)
[2022-04-15 18:27] LABS: Specific Gravity, Urine 1.015 (1.005-1.030); pH, Urine 6.5 (5.0-9.0)
[2022-04-15 18:28] LABS: Clarity Hazy (Clear); Leukocyte Unable to Interpret (Negative)
[2022-04-15 18:29] LABS: Bilirubin Unable to Interpret (Negative); Blood, Urine Unable to Interpret (Negative); Glucose, Urine (Dipstick) Unable to Interpret mg/dL (Negative); Ketone, Urine Unable to Interpret mg/dL (Negative); Nitrite Unable to Interpret (Negative); Protein, Urine (Dipstick) Unable to Interpret mg/dL (Neg-Trace); Urobilinogen UNABLE TO INTERPRET mg/dL (Less than 2)
[2022-04-15 18:30] LABS: Bacteria/HPF Rare-Few HPF (None Seen); RBC/HPF Greater than 50 HPF (0-3); Squamous Epithelial 0-3 HPF (0-3)
[2022-04-15] MEDS ORDERED: Ondansetron PF 4 MG/2 ML Vial ONE (20:18)
[2022-04-15] MEDS ORDERED: Morphine 4 MG/ML VIAL ONE (20:18)
== END 2022-04-15 21:06 | disposition home or self-care (01) ==
LOC: ERS 14:47
DX: N32.89 Other specified disorders of bladder (principal); D64.9 Anemia, unspecified; R31.9 Hematuria, unspecified; I25.2 Old myocardial infarction; I10 Essential (primary) hypertension; F17.210 Nicotine dependence, cigarettes, uncomplicated; Z79.899 Other long term (current) drug therapy
CPT/HCPCS: 36415; 74177; 80053; 81003; 81015; 83690; 85025; 87077; 87086; 87186; 96374; 96375; J2270; J2405; Q9967

== ENCOUNTER 2022-04-18 09:38 | Emergency (ER) | payer MEDICARE, BC ==
[2022-04-18 10:22] LABS: #Basophils 0.1 thou/uL (0.0-0.2); #Eosinphils 0.3 thou/uL (0.0-0.7); #Monocytes 0.8 thou/uL (0.11-0.59); #Neutrophils 5.5 thou/uL (1.40-6.50); %Basophils 0.6 % (0.0-1.0); %Eosinophils 2.8 % (0.0-10.0); %Lymphocytes 30.7 % (21.0-51.0); %Monocytes 8.5 % (0.0-10.0); %Neutrophils 57.4 % (42.0-75.0); Hemoglobin 9.9 g/dL (12.0-16.0); Mean Corpuscular HGB CONC 31.4 g/dL (32.0-36.0); Mean Corpuscular Hemoglobin 27.2 pg (27.0-31.0); Mean Corpuscular Volume 86.7 fL (78.0-98.0); Mean Platelet Volume 7.4 fL (7.4-10.4); Platelet Count 390 thou/uL (130-400); RBC Distribution Width 13.5 % (11.5-14.5); Red Blood Cell (RBC) Count 3.63 mill/uL (4.20-5.40); White Blood Cell (WBC) Count 9.6 thou/uL (4.8-10.8)
[2022-04-18 10:44] LABS: ALT (SGPT) Less than 7 U/L (8-55); AST (SGOT) 13 U/L (5-34); Albumin 3.9 g/dL (3.4-4.8); Alkaline Phosphatase 101 U/L (40-110); Anion Gap 12 mmol/L (10-20); BUN (Urea Nitrogen) 19 mg/dL (9.8-20.1); Bilirubin, Total 0.4 mg/dL (0.2-1.2); Calc. Creatinine Clearance 0 mL/min (70-130); Calcium 9.2 mg/dL (7.8-10.44); Carbon Dioxide 24 mmol/L (23-31); Chloride 110 mmol/L (98-107); Estimated GFR 86; Globulin 3.3 g/dL (2.4-3.5); Glucose 102 mg/dL (83-110); Potassium 3.4 mmol/L (3.5-5.1); Protein, Total 7.2 g/dL (5.8-8.1); Sodium 143 mmol/L (136-145)
[2022-04-18] MEDS ORDERED: HYDROcodone/Acetaminophen 5/325 mg Tablet ONE (10:46)
[2022-04-18 11:03] LABS: Bacteria/HPF 4+ HPF (None Seen); Bilirubin Negative (Negative); Blood, Urine 3+ (Negative); Clarity Turbid (Clear); Glucose, Urine (Dipstick) Normal (Negative); Ketone, Urine Negative (Negative); Leukocyte 75 Leu/uL (Negative); Nitrite 1+ (Negative); Protein, Urine (Dipstick) 50 mg/dL (Neg-Trace); RBC/HPF Greater than 50 HPF (0-3); Specific Gravity, Urine 1.013 (1.002-1.036); Squamous Epithelial None Seen HPF (0-3); Urobilinogen Normal mg/dL (Less than 2)
== END 2022-04-18 10:47 | disposition home or self-care (01) ==
LOC: ERS 09:38
DX: N32.89 Other specified disorders of bladder (principal); I25.10 Atherosclerotic heart disease of native coronary artery without angina pectoris; I25.2 Old myocardial infarction; I10 Essential (primary) hypertension; F17.210 Nicotine dependence, cigarettes, uncomplicated; Z86.73 Personal history of transient ischemic attack (TIA), and cerebral infarction without residual deficits; Z79.82 Long term (current) use of aspirin; Z79.899 Other long term (current) drug therapy; Z79.01 Long term (current) use of anticoagulants
CPT/HCPCS: 36415; 80053; 81003; 81015; 85025; 99284

== ENCOUNTER 2022-08-30 18:50 | Emergency (ER) | payer BC ==
[2022-08-30 19:41] LABS: #Basophils 0.1 thou/uL (0.0-0.2); #Lymphocytes 1.3 thou/uL (1.20-3.40); #Monocytes 0.7 thou/uL (0.11-0.59); #Neutrophils 5.5 thou/uL (1.40-6.50); %Basophils 0.9 % (0.0-1.0); %Eosinophils 0.6 % (0.0-10.0); %Lymphocytes 16.3 % (21.0-51.0); %Monocytes 9.7 % (0.0-10.0); %Neutrophils 72.5 % (42.0-75.0); Hemoglobin 6.7 g/dL (12.0-16.0); Mean Corpuscular HGB CONC 30.3 g/dL (32.0-36.0); Mean Corpuscular Hemoglobin 19.8 pg (27.0-31.0); Mean Corpuscular Volume 65.3 fl (78.0-98.0); Mean Platelet Volume 9.9 fL (7.4-10.4); Platelet Count 371 10x3/uL (130-400); RBC Distribution Width 16.9 % (11.5-14.5); Red Blood Cell (RBC) Count 3.37 mill/uL (4.20-5.40); White Blood Cell (WBC) Count 7.6 10x3/uL (4.8-10.8)
[2022-08-30 20:02] LABS: ALT (SGPT) Less than 7 U/L (8-55); AST (SGOT) 9 U/L (5-34); Albumin 3.8 g/dL (3.4-4.8); Alkaline Phosphatase 94 U/L (40-110); Anion Gap 12 mmol/L (10-20); BUN (Urea Nitrogen) 20 mg/dL (9.8-20.1); Bilirubin, Total 0.5 mg/dL (0.2-1.2); Calc. Creatinine Clearance 0 mL/min (70-130); Calcium 8.8 mg/dL (7.8-10.44); Carbon Dioxide 22 mmol/L (23-31); Chloride 110 mmol/L (98-107); Estimated GFR 89; Globulin 2.8 g/dL (2.4-3.5); Glucose 97 mg/dL (83-110); Potassium 3.2 mmol/L (3.5-5.1); Protein, Total 6.6 g/dL (5.8-8.1); Sodium 141 mmol/L (136-145)
== END 2022-08-30 22:57 | disposition home or self-care (01) ==
LOC: ERS 18:50
DX: D64.9 Anemia, unspecified (principal); I25.2 Old myocardial infarction; I10 Essential (primary) hypertension; F17.210 Nicotine dependence, cigarettes, uncomplicated; Z79.899 Other long term (current) drug therapy
CPT/HCPCS: 36430; 80053; 85025; 86850; 86900; 86901; P9016